=== PATIENT | male | born 1975 | race Caucasian/White ===

== ENCOUNTER 2017-12-19 22:20 | Emergency (ER) | payer BC, OTHER ==
[2017-12-19] MEDS ORDERED: DIAZEPAM 5 MG/ML 2 ML INJ IVP STA (22:30)
[2017-12-19] MEDS ORDERED: KETOROLAC 30 MG/ML 1 ML VIAL IVP STA (22:30)
[2017-12-19 22:41] VITALS: RESP 18
--- NOTE | 2017-12-19 22:46 | ED ---
General Adult HPI - General Source: patient, RN notes reviewed Mode of arrival: EMS Limitations: no limitations <Olivia Hassan - Last Filed: 12/19/17 23:27> <Pablo Schmidt - Last Filed: 12/20/17 00:57> - General Chief complaint: Back Pain/Injury Stated complaint: back pain Time Seen by Provider: 12/19/17 22:21 - History of Present Illness Initial comments: 42-year-old male presents to the emergency department with a chief complaint of back pain. He was reaching for a back yesterday and he threw his back out. He states his family happens about once year. He has had an MRI in the the past that did show degenerative disc disease. The patient states that he tried taking Tylenol at home and resting that he just continues to have these spasms so he thought that he should be seen. There is been no nausea vomiting. No loss of bowel or bladder function. They were concerned due to his continued pain so they thought that they should be seen. Patient denies any recent fever, chills, shortness of breath, chest pain, abdominal pain, nausea vomiting, numbness or tingling, dysuria or hematuria, constipation or diarrhea, headaches or visual changes, or any other current symptoms. (Olivia Hassan) - Related Data Previous Rx's Medication Instructions Recorded Hydrocodone/Acetaminophen [[place] 1 each PO Q6HR PRN #20 tab 12/19/17 5-325] Orphenadrine [Norflex] 100 mg PO Q12H #10 tablet.er 12/19/17 Allergies Allergy/AdvReac Type Severity Reaction Status Date / Time No Known Allergies Allergy Verified 12/19/17 22:41 Review of Systems ROS Other: All systems not noted in ROS Statement are negative. <Olivia Hassan - Last Filed: 12/19/17 23:27> ROS Other: All systems not noted in ROS Statement are negative. <Pablo Schmidt - Last Filed: 12/20/17 00:57> ROS Statement: Those systems with pertinent positive or pertinent negative responses have been documented in the HPI. Past Medical History Additional Past Medical History / Comment(s): chronic back pain, DJD, recent MRI History of Any Multi-Drug Resistant Organisms: None Reported Additional Past Surgical History / Comment(s): tubes in ears as child Past Psychological History: No Psychological Hx Reported Smoking Status: Current every day smoker Past Alcohol Use History: Occasional Past Drug Use History: Marijuana <Olivia Hassan - Last Filed: 12/19/17 23:27> General Exam Limitations: no limitations General appearance: alert, in no apparent distress ENT exam: Present: normal exam, mucous membranes moist Neck exam: Present: normal inspection. Absent: tenderness, meningismus, lymphadenopathy Respiratory exam: Present: normal lung sounds bilaterally. Absent: respiratory distress, wheezes, rales, rhonchi, stridor Cardiovascular Exam: Present: regular rate, normal rhythm, normal heart sounds. Absent: systolic murmur, diastolic murmur, rubs, gallop, clicks Extremities exam: Present: normal inspection, full ROM, normal capillary refill. Absent: tenderness, pedal edema, joint swelling, calf tenderness Back exam: Present: normal inspection, muscle spasm (Diffuse). Absent: full ROM (Pain with range of motion), tenderness, rash noted Neurological exam: Present: alert, oriented X3 Psychiatric exam: Present: normal affect, normal mood Skin exam: Present: warm, dry, intact, normal color. Absent: rash <Olivia Hassan - Last Filed: 12/19/17 23:27> Course <Olivia Hassan - Last Filed: 12/19/17 23:27> <Pablo Schmidt - Last Filed: 12/20/17 00:57> Vital Signs 12/19/17 22:20 Temperature 97.9 F Pulse Rate 70 Respiratory 18 Rate Blood Pressure 164/79 O2 Sat by Pulse 97 Oximetry - Reevaluation(s) Reevaluation #1: 12/19/17 23:27 This case will be signed out to DR. Schmidt. (Olivia Hassan) Medical Decision Making <Olivia Hassan - Last Filed: 12/19/17 23:27> <Pablo Schmidt - Last Filed: 12/20/17 00:57> - Medical Decision Making 42-year-old male presents emergency Department chief complaint appears to be a lumbar strain with paraspinal muscle spasm. This time we discussed we'll start him on muscle relaxers for home pain medication. We discussed follow-up with his doctor we discussed return parameters and all questions. Patient family stated that they understood and they are in agreement this plan. All questions have been answered. They will be discharged. (Olivia Hassan) 42 male the ER for evaluation of back spasm, patient has increased improvement with pain control and monitoring. Patient can be discharged home (Pablo Schmidt) Disposition <Olivia Hassan - Last Filed: 12/19/17 23:27> <Pablo Schmidt - Last Filed: 12/20/17 00:57> Clinical Impression: Strain of lumbar region, Lumbar paraspinal muscle spasm Disposition: HOME SELF-CARE Condition: Stable Instructions: Acute Low Back Pain (ED), Lower Back Exercises (ED), Chronic Back Pain (ED) Additional Instructions: Please use medication as discussed. Please follow up with family doctor if symptoms have not improved over the next two days. Please return to the emergency room if your symptoms increase or worsen or for any other concerns. Prescriptions: Hydrocodone/Acetaminophen [[place] 5-325] 1 each PO Q6HR PRN #20 tab PRN Reason: Pain Orphenadrine [Norflex] 100 mg PO Q12H #10 tablet.er Referrals: Norm Cee MD [Primary Care Provider] - 1-2 days
[2017-12-19] MEDS ORDERED: diphenhydrAMINE 50 MG/ML 1 ML VIAL IVP STA (23:27)
[2017-12-19] MEDS ORDERED: ORPHENADRINE 30 MG/ML 2 ML VIAL IVP STA (23:27)
[2017-12-19] MEDS ORDERED: SODIUM CHLORIDE 0.9% 1,000 ML IV STA (23:35)
[2017-12-19] MEDS ORDERED: ACETAMINOPHEN IV (For NPO) 1,000 MG in EMPTY BAG 1 BAG IVPB STA (23:35)
[2017-12-20 01:16] VITALS: BP 152/84; PULSE 88; TEMP 96.7
== END 2017-12-20 01:16 | disposition home or self-care (01) ==
LOC: EC 22:20
DX: S39.012A Strain of muscle, fascia and tendon of lower back, initial encounter (principal); M62.830 Muscle spasm of back; F17.200 Nicotine dependence, unspecified, uncomplicated
CPT/HCPCS: 99284; 96374; 96375 ×4; 96361; J1200; J2360; J3360; J1885; J0131

== ENCOUNTER → 2018-01-27 | Outpatient (CLI) | payer BC ==
--- NOTE | 2018-01-28 13:44 | MR ---
EXAMINATION TYPE: MR tspine/lspine wo con DATE OF EXAM: 01/27/2018 COMPARISON: Previous MR thoracic and lumbar spine 02/10/2016 HISTORY: T-L spine pain TECHNIQUE: Multiplanar, multisequence imaging of the lumbar and thoracic spine is performed without I V contrast. FINDINGS: Thoracic spine: There is no significant interval change. Multilevel spondylosis is present. There is a gentle spinal curvature present. Endplate discogenic marrow signal changes are present. There is no significant spinal stenosis, foraminal encroachment, or sizable disc herniation. Facet arthropathy c hanges are noted especially at the lower levels. Thoracic cord signal is maintained. IMPRESSION: Stable degenerative disc disease. Lumbar spine MRI: Sagittal images of the lumbar spine show vertebral body heights and alignment to [place] satisfactory. The intervertebral discs demonstrate stable heights and hydration. The conus medu llaris is normal in position and signal. The bone marrow signal intensity is similar, there is multi level spondylosis with endplate discogenic marrow signal change, probable large Schmorl's node presen t at the anterior aspect of L4. There is no significant foraminal encroachment or spinal stenosis. Mild multilevel circumferential di sc bulges are present especially L3-4, L2-3, L1-2 causing mild anterior mass effect on the thecal sac . Multilevel facet arthropathy changes are present. IMPRESSION: Essentially stable degenerative disc disease, facet arthropathy, no significant spinal st enosis or foraminal encroachment.
== END ==
LOC: RADMRIMAIN 19:46
PROVIDERS: ATTEND Nurse Practitioner Adult Health
DX: M51.36 Other intervertebral disc degeneration, lumbar region (principal); M46.96 Unspecified inflammatory spondylopathy, lumbar region
CPT/HCPCS: 72146; 72148

== ENCOUNTER → 2018-09-27 | Outpatient (CLI) | payer BC ==
--- NOTE | 2018-09-27 11:01 | US ---
EXAMINATION TYPE: US abdomen complete DATE OF EXAM: 09/27/2018 COMPARISON: NONE CLINICAL HISTORY: R74.8 ABN LEVELS OF OTHER SERUM ENZYMES. EXAM MEASUREMENTS: Liver Length: 15.3 cm Gallbladder Wall: 0.2 cm CBD: 0.2 cm Spleen: 12.0 cm Right Kidney: 11.0 x 6.0 x 5.9 cm Left Kidney: 10.6 x 6.2 x 5.9 cm Pancreas: Tail obscured by overlying bowel gas Liver: Increased attenuation, decreased visualization of vessels suggestive of fatty infiltrate, evelina e probable focal fatty sparing adjacent to gallbladder that is hypoattenuated, geographic and curvili near in morphology. Overall hepatic echotexture limits evaluation for underlying hepatic masses. Gallbladder: wnl Evidence for sonographic Barker's sign: No CBD: wnl Spleen: wnl Right Kidney: Inferior pole slightly obscured by bowel gas Left Kidney: wnl Upper IVC: wnl Abd Aorta: wnl The intrahepatic portion of the IVC and proximal abdominal aorta are within normal limits. There is no evidence of cholelithiasis. Common bile duct is unremarkable. The visualized portions of the [place] cre[place] are homogenous. The spleen is unremarkable. Kidneys are symmetric and free of hydronephrosis. No renal lesions are seen. IMPRESSION: 1. Hepatic echotexture is hyperechoic most commonly related to hepatic steatosis appearing overall mo derate degree with probable focal fatty sparing in a typical location near the gallbladder fossa. 2. No sonographic evidence of cholelithiasis or acute cholecystitis.
== END | disposition home or self-care (01) ==
LOC: RADUSWWP 08:51
PROVIDERS: ATTEND Family Medicine
DX: R93.2 Abnormal findings on diagnostic imaging of liver and biliary tract (principal)
CPT/HCPCS: 76700

== ENCOUNTER → 2018-10-20 | Outpatient (CLI) | payer BC ==
--- NOTE | 2018-10-20 08:15 | US ---
EXAMINATION TYPE: US abdomen limited DATE OF EXAM: 10/20/2018 COMPARISON: NONE CLINICAL HISTORY: R19.00 Abdominal Mass. Pt states ABD wall bulging right lateral x 1 month Assess for hernia at location of: Right/Lateral lower ABD No abnormality seen in area of pt's concern IMPRESSION: No suspicious fat or bowel containing hernia. No suspicious fluid collection seen on lazaro ges saved. Real-time scanning was performed by the slot machine key person utilizing Valsalva and additional dynamic maneuve rs to assess for hernia. Images of the contralateral side were also acquired for direct comparison.
== END ==
LOC: RADUSWWP 07:31
PROVIDERS: ATTEND Family Medicine
DX: R19.00 Intra-abdominal and pelvic swelling, mass and lump, unspecified site (principal)
CPT/HCPCS: 76705

== ENCOUNTER 2024-12-17 01:19 | Emergency (ER) | payer BC ==
[2024-12-17 01:29] LABS: Glucose,Whole Blood 120 mg/dL (70-110)
--- NOTE | 2024-12-17 01:31 | ED ---
Chest Pain HPI - General Chief Complaint: Chest Pain Stated Complaint: chest pain confusion Time Seen by Provider: 12/17/24 01:26 Source: patient, RN notes reviewed, old records reviewed Mode of arrival: wheelchair Limitations: no limitations - History of Present Illness Initial Comments: This is a 49-year-old female with near syncopal event with chest pain. Patient presents for lightheadedness dizziness occasional headaches chest pain symptoms of near syncope. No recent illnesses no recent fevers no nausea vomiting or diarrhea. No abdominal pain. Patient with persistent headache and chest pain here in the ER MD Complaint: chest pain -: hour(s) Onset: during rest, during exertion Pain Location: substernal Pain Radiation: none Severity: moderate Severity scale (1-10): 4 Quality: tightness Consistency: constant, now resolved Improves With: nothing Worsens With: nothing Other Symptoms: palpitations Treatments Prior to Arrival: none - Related Data Previous Rx's Medication Instructions Recorded Hydrocodone/Acetaminophen [[place] 1 each PO Q6HR PRN #20 tab 12/19/17 5-325] Orphenadrine [Norflex] 100 mg PO Q12H #10 tablet.er 12/19/17 Allergies Allergy/AdvReac Type Severity Reaction Status Date / Time Latex, Natural Rubber Allergy Rash/Hives Verified 12/17/24 01:25 aspirin AdvReac Nausea & Verified 12/17/24 01:25 Vomiting & Diarrhea Review of Systems ROS Statement: Those systems with pertinent positive or pertinent negative responses have been documented in the HPI. ROS Other: All systems not noted in ROS Statement are negative. EKG Findings - EKG Comments: EKG Findings:: EKG is sinus 68 NE 162 QRS 106 QTc 420 - EKG Results: EKG: interpreted by KAY Past Medical History Past Medical History: Hypertension Additional Past Medical History / Comment(s): chronic back pain, DJD, recent MRI History of Any Multi-Drug Resistant Organisms: None Reported Past Surgical History: Ear Surgery Additional Past Surgical History / Comment(s): tubes in ears as child Past Psychological History: No Psychological Hx Reported Smoking Status: Current every day smoker Past Alcohol Use History: Occasional Past Drug Use History: None Reported General Exam Limitations: no limitations General appearance: alert, in no apparent distress Head exam: Present: atraumatic, normocephalic, normal inspection Eye exam: Present: normal appearance, PERRL, EOMI. Absent: scleral icterus, conjunctival injection, periorbital swelling ENT exam: Present: normal exam, mucous membranes moist Neck exam: Present: normal inspection. Absent: tenderness, meningismus, lymphadenopathy Respiratory exam: Present: normal lung sounds bilaterally. Absent: respiratory distress, wheezes, rales, rhonchi, stridor Cardiovascular Exam: Present: regular rate, normal rhythm, normal heart sounds. Absent: systolic murmur, diastolic murmur, rubs, gallop, clicks GI/Abdominal exam: Present: soft, normal bowel sounds. Absent: distended, tenderness, guarding, rebound, rigid Extremities exam: Present: normal inspection, full ROM, normal capillary refill. Absent: tenderness, pedal edema, joint swelling, calf tenderness Back exam: Present: normal inspection Neurological exam: Present: alert, oriented X3, CN II-XII intact Psychiatric exam: Present: normal affect, normal mood Skin exam: Present: warm, dry, intact, normal color. Absent: rash Course Vital Signs 12/17/24 12/17/24 12/17/24 01:25 03:16 05:02 Temperature 97.6 F 97.7 F Pulse Rate 67 75 Pulse Rate [ 70 Left Supine Radial] Respiratory 16 18 Rate Blood Pressure 131/87 131/78 O2 Sat by Pulse 95 94 L Oximetry - Reevaluation(s) Reevaluation #1: Medical records reviewed Reevaluation #2: No current chest pain here in the ER Reevaluation #3: Patient informed of results and questions answered Reevaluation #4: Was pt. sent in by a medical professional or institution (, PA, [facility], urgent care, hospital, or group home...) When possible be specific @ -no Did you speak to anyone other than the patient for history (EMS, parent, family, police, friend...)? What history was obtained from this source @ -no Did you review nursing and triage notes (agree or disagree)? Why? @ -agree Are old charts reviewed (outside hosp., previous admission, EMS record, old EKG, old radiological studies, urgent care reports/EKG's, group home records)? Report findings @ -yes Differential Diagnosis (chest pain, altered mental status, abdominal pain women, abdominal pain men, vaginal bleeding, weakness, fever, dyspnea, syncope, headache, dizziness, GI bleed, back pain, seizure, CVA, palpatations, mental h ealth, musculoskeletal)? @ -prior EKG interpreted by me (3pts min.). @ -yes X-rays interpreted by me (1pt min.). @ -yes negative for acute disease CT interpreted by me (1pt min.). @ -yes negative for acute disease U/S interpreted by me (1pt. min.). @ -no What testing was considered but not performed or refused? (CT, X-rays, U/S, labs)? Why? @ -none What meds were considered but not given or refused? Why? @ -none Did you discuss the management of the patient with other professionals (professionals i.e. , PA, [facility] [facility], lab, RT, psych nurse, outreach and education social worker, director of sales, teacher, hydrological technical officer, social work case manager)? Give summary @ -no Was smoking cessation discussed for >3mins.? @ -no Was critical care preformed (if so, how long)? @ -no Were there social determinants of health that impacted care today? How? (Homelessness, low income, unemployed, alcoholism, drug addiction, transportation, low edu. Level, literacy, decrease access to med. care, [place] [facility], rehab)? @ -none Was there de-escalation of care discussed even if they declined (Discuss DNR or withdrawal of care, Hospice)? DNR status @ -no What co-morbidities impacted this encounter? (DM, HTN, Smoking, COPD, CAD, Cancer, CVA, ARF, Chemo, Hep., AIDS, mental health diagnosis, sleep apnea, morbid obesity)? @ -none Was patient admitted / discharged? Hospital course, mention meds given and route, prescriptions, significant lab abnormalities, going to OR and other pertinent info. @ - 49 male with near syncopal event patient has CT brain x-ray negative troponin negative x 2 D-dimer negative patient in no distress and can be discharged home Discharge Undiagnosed new problem with uncertain prognosis? @ -no Drug Therapy requiring intensive monitoring for toxicity (Heparin, Nitro, Insulin, Cardizem)? @ -no Were any procedures done? @ -no Diagnosis/symptom? @ -Chest pain and near syncope, headache dizziness Acute, or Chronic, or Acute on Chronic? @ -Acute Uncomplicated (without systemic symptoms) or Complicated (systemic symptoms)? @ -Complicated Side effects of treatment? @ -no Exacerbation, Progression, or Severe Exacerbation? @ -exacerbation Poses a threat to life or bodily function? How? (Chest pain, [place], [place], pneumonia, PE, COPD, DKA, ARF, appy, cholecystitis, CVA, Diverticulitis, Homicidal, Suicidal, threat to staff... and all critical care pts) @ -yes with cause of syncope Reevaluation #5: Differential Chest Pain: Stable Angina, Unstable Angina, STEMI, NSTEMI Aortic Dissection, Pneumothorax, Musculoskeletal, Esophageal Spasm GERD, Cholecystitis, Pancreatitis, Zoster, this is not meant to be an all-inclusive list. Chest Pain MDM - MDM 49 male with near syncopal event patient has CT brain x-ray negative troponin negative x 2 D-dimer negative patient in no distress and can be discharged home Disposition Clinical Impression: Atypical chest pain, Chest pain, Near syncope Disposition: HOME SELF-CARE Condition: Good Instructions (If sedation given, give patient instructions): Chest Pain (ED), Near Syncope (ED) Is patient prescribed a controlled substance at d/c from ED?: No Referrals: Norm Cee MD [Primary Care Provider] - 1-2 days Time of Disposition: 05:30
[2024-12-17 03:38] LABS: Basophils % (A) 0 %; Eosinophils # (A) 0.2 k/uL (0-0.7); Eosinophils % (A) 2 %; HCT 47.6 % (39.0-53.0); HGB 15.8 gm/dL (13.0-17.5); Lymphocytes # (A) 3.6 k/uL (1.0-4.8); Lymphocytes % (A) 33 %; MCH 29.8 pg (25.0-35.0); MCHC 33.2 g/dL (31.0-37.0); MCV 89.7 fL (80.0-100.0); Mean Platelet Volume 8.4; Monocytes # (A) 0.5 k/uL (0-1.0); Monocytes % (A) 4 %; Neutrophils # (A) 6.4 k/uL (1.3-7.7); Neutrophils % (A) 59 %; Platelet Count 188 k/uL (150-450); RBC 5.31 m/uL (4.30-5.90); RDW 13.3 % (11.5-15.5); WBC 10.9 k/uL (3.8-10.6)
[2024-12-17 03:46] LABS: ALT 37 U/L (4-49); AST 25 U/L (17-59); African American GFR (CKD) >90 (>60 ml/min/1.73 sqM); Albumin 4.5 g/dL (3.5-5.0); Alcohol <10 mg/dL; Alkaline Phosphatase 98 U/L (38-126); Anion Gap 12 mmol/L; Blood Urea Nitrogen 12 mg/dL (9-20); Calcium 9.6 mg/dL (8.4-10.2); Carbon Dioxide 22 mmol/L (22-30); Chloride 101 mmol/L (98-107); Glucose 130 mg/dL (74-99); Lipase 45 U/L (23-300); Magnesium 1.9 mg/dL (1.6-2.3); Non-African American GFR(CKD) >90 (>60 ml/min/1.73 sqM); Sodium 135 mmol/L (137-145); Total Bilirubin 0.4 mg/dL (0.2-1.3); Total Protein 7.3 g/dL (6.3-8.2)
--- NOTE | 2024-12-17 03:49 | XR ---
EXAM: XR Chest, 2 Views CLINICAL HISTORY: ITS.REASON XR Reason: Chest Pain TECHNIQUE: Frontal and lateral views of the chest. COMPARISON: No previous studies. FINDINGS: Lungs: Unremarkable. No consolidative changes or pleural effusions. Pleural space: See above. Heart: Heart is normal in size. No cardiomegaly. Mediastinum: Unremarkable. Normal mediastinal contour. Bones/joints: Mild to moderate degenerative disc disease. Osseous structures and soft tissues are unremarkable. No acute fracture. IMPRESSION: No consolidative changes or pleural effusions.
[2024-12-17 03:54] LABS: NT-Pro-B-Type Natriuretic Pept 26 pg/mL
[2024-12-17 04:00] LABS: INR 0.9 (<1.2); Partial Thromboplastin Time 22.2 sec (22.0-30.0); Prothrombin Time 9.9 sec (10.0-12.5)
[2024-12-17 05:04] VITALS: BP 131/78; PULSE 75; RESP 18; TEMP 97.7
--- NOTE | 2024-12-17 05:32 | CT ---
EXAM: CT Head Without Intravenous Contrast CLINICAL HISTORY: ITS.REASON CT Reason: ams TECHNIQUE: Axial computed tomography images of the head/brain without intravenous contrast. CTDI is 49.2 mGy and DLP is 1171.4 mGy-cm. This CT exam was performed using one or more of the following dose reduction techniques: automated exposure control, adjustment of the mA and/or kV according to patient size, and/or use of iterative reconstruction technique. COMPARISON: No relevant prior studies available. FINDINGS: Brain: No hemorrhage or mass effect. Right choroidal fissure cyst. Ventricles: No hydrocephalus. Bones/joints: Unremarkable. Soft tissues: Unremarkable. Sinuses: No air fluid level. Mastoid air cells: Clear. IMPRESSION: No acute hemorrhage, hydrocephalus, or mass effect.
== END 2024-12-17 05:49 | disposition home or self-care (01) ==
LOC: EC 01:19
DX: R07.89 Other chest pain (principal); R55 Syncope and collapse; F17.200 Nicotine dependence, unspecified, uncomplicated; Z88.6 Allergy status to analgesic agent; Z91.040 Latex allergy status
CPT/HCPCS: 36415; 70450; 71046; 80053; 80320; 83690; 83735; 83880; 84484; 85025; 85379; 85610; 85730; 93005; 99285